=== PATIENT | female | born 1985 | race American Indian/Alaskan Native ===

== ENCOUNTER 2019-01-15 05:57 | Day surgery (SDC) | payer OTHER ==
--- NOTE | 2019-01-15 01:18 | History and Physical Report ---
History of Present Illness Date of examination: 01/14/19 Chief complaint: dysfunctional uterine bleeding History of present illness: Patient is a 34-year-old -Citizen Of [place] female 2 para 2001 who presents for surgical management of dysfunctional uterine bleeding after failed medical management. Past History Past Medical History: blood transfusion, other (Obesity) Past Surgical History: section, other (abdominoplasty, liposuction) Family/Genetic History: diabetes, hypertension Social history: no significant social history Medications and Allergies Allergies Allergy/AdvReac Type Severity Reaction Status Date / Time No Known Allergies Allergy Unverified 01/10/19 14:18 Home Medications Medication Instructions Recorded Confirmed Last Taken Type No Known Home Medications [No 01/10/19 01/10/19 Unknown History Reported Home Medications] Review of Systems All systems: negative - Physical Exam Breasts: Positive: deferred Cardiovascular: Regular rate Lungs: Positive: Clear to auscultation Abdomen: Positive: soft (obese) Extremities: Positive: normal Results All other labs normal. Assessment and Plan A: Dysfunctional uterine bleeding Obesity P: Proceed with hysteroscopy, Myosure endometrial sampling, NovaSure endometrial ablation and other indicated procedures
[~2019-01-15 05:57] MED LIST: LACTATED RINGERS 1,000 ML IV SCH
[2019-01-15] MEDS ORDERED: ANCEF/STERILE WATER 2 GM/20 ML 2 GM/20 ML SYRINGE IV NR (06:00)
[2019-01-15] MEDS ORDERED: ZOFRAN IV PRN (07:24)
[2019-01-15] MEDS ORDERED: SUBLIMAZE IV PRN (07:24)
[2019-01-15] MEDS ORDERED: DEMEROL IV PRN (07:24)
[2019-01-15] MEDS ORDERED: NARCAN 0.4 MG/1 ML IV PRN (07:24)
[2019-01-15] MEDS ORDERED: DILAUDID IV PRN (07:24)
[2019-01-15] MEDS ORDERED: ZOFRAN ONE (07:38)
[2019-01-15] MEDS ORDERED: XYLOCAINE MPF 2% ONE (07:39)
[2019-01-15] MEDS ORDERED: DIPRIVAN 10 MG/ML IV ONE (07:39)
[2019-01-15] MEDS ORDERED: SUBLIMAZE ONE (07:39)
[2019-01-15 07:42] LABS: Hematocrit 26.1 % (30.3-42.9); Mean Corpuscular HGB Conc 31 % (30-34); Platelet Count 326 K/mm3 (140-440); Red Blood Count 3.85 M/mm3 (3.65-5.03); Red Cell Distribution Width 18.2 % (13.2-15.2)
[2019-01-15 07:43] LABS: Mean Corpuscular Volume 68 fl (79-97)
[2019-01-15] MEDS ORDERED: VERSED IV NR (08:00)
--- NOTE | 2019-01-15 08:21 | Anesthesia Consultation ---
Anesthesia Consult and Med Hx Date of service: 01/15/19 - Airway Anesthetic Teeth Evaluation: Good ROM Head & Neck: Adequate Mental/Hyoid Distance: Adequate Mallampati Class: Class I Intubation Access Assessment: Probably Good - Pulmonary Exam CTA: Yes - Cardiac Exam Cardiac Exam: RRR - Pre-Operative Health Status ASA Pre-Surgery Classification: ASA2 Proposed Anesthetic Plan: General - Pulmonary Hx Smoking: Yes (Former; quit 1.5 years ago ) Hx Respiratory Symptoms: No SOB: No - Cardiovascular System Hx Hypertension: No Hx Heart Attack/AMI: No Hx Cardia Arrhythmia: No - Central Nervous System Hx Neuromuscular Disorder: No Hx Psychiatric Problems: No - Gastrointestinal Hx Gastroesophageal Reflux Disease: No - Endocrine Hx Renal Disease: No Hx Liver Disease: No Hx Insulin Dependent Diabetes: No Hx Non-Insulin Dependent Diabetes: No - Hematic Hx Anemia: Yes - Other Systems Hx Alcohol Use: Yes (Occas) Hx Cancer: No Hx Obesity: Yes (BMI 37.4) - Additional Comments Anesthesia Medical History Comments: No GAC, No FHAC
--- NOTE | 2019-01-15 08:22 | Anesthesia Day of Surgery ---
Anesthesia Day of Surgery - Day of Surgery Patient Examined: Yes Patient H&P Reviewed: Yes Patient is NPO: Yes ([id number]) Beta Blockers: No Cardiac Clearance: No Pulmonary Clearance: No
[2019-01-15] MEDS ORDERED: NACL 0.9% IR ONE (08:35)
[2019-01-15] MEDS ORDERED: SILVER NITRATE TP ONE ×2 (08:35)
[2019-01-15] MEDS ORDERED: DECADRON ONE (08:38)
[2019-01-15] MEDS ORDERED: TORADOL ONE (08:50)
--- NOTE | 2019-01-15 09:08 | Operative Report ---
Operative Report Operative Report: Date of procedure: January 15, 2019 Preoperative diagnosis: 1) Dysfunctional Uterine Bleeding 2) Obesity Postoperative diagnosis: Same Procedure: 1)Diagnostic Hysteroscopy 2)Myosure Endometrial Sampling 3)NovaSure Endometrial Ablation Surgeon: Sri Scott M.D. Findings: 1) Small anteverted mobile uterus that sounded to 9 cm 2) Proliferative endometrium on hysteroscopy Anesthesia: General with LMA Estimated blood loss: Minimal (25 mL ) IV fluid: 700 mL Specimens: Endometrial curettings to pathology Drains: None Complications: None Disposition: Stable to PACU Indications for procedure: The patient is a 34-year-old -[place] female 2 para 2001 who presents for surgical management of dysfunctional uterine bleeding after failed medical management. Operation in detail: After the risks, benefits, alternatives and complications of the procedure were explained to the patient, she gave informed consent for the procedure. She was subsequently taken to the operating room and placed in the dorsal supine position. SCDs noted to be in place and functioning. General anesthesia was then induced without difficulty. The patient was in placement dorsal lithotomy position and prepped and draped in normal sterile fashion. A timeout was performed. An exam under anesthesia was performed yielding a mobile anteverted uterus. The bladder was then catheterized and drained of urine. An open sided speculum was then placed into the vagina for adequate visualization of the cervix. The anterior lip of the cervix was then grasped with a tenaculum for traction. The cavity length was then noted to be 4.5 cm. At this time a hysteroscope was introduced through the cervix to visualize the endometrial cavity which revealed proliferative endometrium. The Myosure device was used to obtain endometrial curettings which were sent to pathology. Attention was then turned to the endometrial ablation. At this time, the cervix was noted to be sufficiently dilated to accommodate the Novasure device. Next the disposable NovaSure device was connected to the RF controller. The NovaSure disposable device was deployed to the locked position and noted to fully extend. The device was then placed in the unlocked position. The disposable device was then inserted into the uterine cavity with traction o n the tenaculum. The device was then seated per protocol. After moving the device back 0.5 cm, the device was moved superiorly and inferiorly and rotated clockwise and counterclockwise to 45. The cavity width at this time was noted to be 4.7 cm. The cervical collar was then advanced to the cervix. The cavity assessment was then initiated and passed. The ablation procedure was then initiated with a 2 minute duration. The cervical collar was moved away from the cervix, the device was moved to the unlocked position, and the disposable NovaSure device was removed from the uterine cavity. At this time, the single- tooth tenaculum was removed from the cervix. Silver nitrate and pressure were placed on the puncture sites to achieve hemostasis. Hemostasis was noted. All instruments were removed from the vagina atraumatically and the procedure was ended. The patient was placed into the dorsal supine position and extubated without difficulty. She was subsequently taken to the PACU in stable condition. She tolerated the procedure well. All counts were correct 2.
--- NOTE | 2019-01-15 09:12 | Short Stay Summary ---
Short Stay Documentation Date of service: 01/15/19 - History H&P: dictated Social history: no significant social history - Allergies and Medications Current Medications: Allergies No Known Allergies Allergy (Verified 01/15/19 01:19) Home Medications Medication Instructions Recorded Confirmed Last Taken Type No Known Home Medications [No 01/10/19 01/10/19 Unknown History Reported Home Medications] Active Medications Fentanyl (Sublimaze) 50 mcg IV Q5MIN PRN PRN Reason: Pain , Severe (7-10) Stop: 01/15/19 23:59 Hydromorphone HCl (Dilaudid) 0.5 mg IV Q10MIN PRN PRN Reason: Pain , Severe (7-10) Stop: 01/15/19 23:59 Cefazolin Sodium (Ancef/Sterile Water 2 Gm/20 Ml) 2 gm in 20 mls @ 80 mls/hr IV PREOP NR; Protocol Stop: 01/15/19 23:59 Lactated Ringer's (Lactated Ringers) 1,000 mls @ 75 mls/hr IV DIRECT DEE Meperidine HCl (Demerol) 25 mg IV ONCE PRN PRN Reason: Shivering Stop: 01/15/19 23:59 Midazolam HCl (Versed) 2 mg IV PREOP NR Stop: 01/15/19 23:59 Naloxone HCl (Narcan 0.4 Mg/1 Ml) 0.1 mg IV Q2MIN PRN PRN Reason: Res Rate </= 8 or 02 SAT < 92% Stop: 01/15/19 23:59 Ondansetron HCl (Zofran) 4 mg IV ONCE PRN PRN Reason: Nausea And Vomiting Stop: 01/15/19 23:59 - Physical exam Breasts: deferred - Brief post op/procedure progress note Date of procedure: 01/15/19 Pre-op diagnosis: Dysfunctional Uterine Bleeding Post-op diagnosis: same Procedure: 1) Hysteroscopy 2) Myosure endometrial sampling 3) Novasure endometrial ablation Anesthesia: GETA Findings: 1) Uterus sounded to 9 cm 2) Proliferative endometrium Surgeon: EILEEN SCOTT Estimated blood loss: minimal (25 mL) Pathology: list (endometrial curettingd) Specimen disposition: to lab Condition: stable - Hospital course Hospital course: Patient underwent hysteroscopy, Myosure endometrial sampling and NovaSure endometrial ablation which she tolerated well. She was observed in the PACU until she met discharge criteria. She'll follow-up in the office in [address] Scott. - Disposition Condition at discharge: Stable Disposition: DC-[id number] TO HOME OR SELFCARE - Discharge Diagnoses (1) Obesity Status: Acute Qualifiers: Obesity type: unspecified obesity type Serious obesity comorbidity presence: unspecified whether serious comorbidity present Body mass index: BMI 37.0-37.9 (2) DUB (dysfunctional uterine bleeding) Status: Acute Short Stay Discharge Plan Activity: other (Nothing per vagina x 4 wks ) Weight Bearing Status: Full Weight Bearing Diet: regular Follow up with: PRIMARY CAREMD [Primary Care Provider] - 7 Days EILEEN SCOTT MD [Staff Physician] - 01/29/19 (Please call to schedule postop appt ) Prescriptions: Ibuprofen [Motrin] 800 mg PO Q8HR PRN #30 tablet PRN Reason: Pain, Moderate (4-6) oxyCODONE /ACETAMINOPHEN [Percocet 5/325] 1 tab PO Q6HR PRN #30 tablet PRN Reason: Pain
[2019-01-15] MEDS ORDERED: PERCOCET 5/325 PO PRN (10:05)
--- NOTE | 2019-01-15 11:08 | Post Anesthesia Evaluation ---
- Post Anesthesia Evaluation Patient Participated: Yes Airway Patent: Yes Stable Respiratory Function: Yes Nausea/Vomiting: No Temp > 96.8F: Yes Pain Manageable: Yes Adequeate Hydration: Yes Anesthesia Complications: No
[2019-01-15 16:39] VITALS: BP 140/77
== END 2019-01-15 10:35 | disposition home or self-care (01) ==
LOC: OR 05:57
PROVIDERS: ATTEND Obstetrics & Gynecology
DX: N84.0 Polyp of corpus uteri (principal); N93.8 Other specified abnormal uterine and vaginal bleeding; E66.9 Obesity, unspecified; K21.9 Gastro-esophageal reflux disease without esophagitis; Z98.891 History of uterine scar from previous surgery; Z72.89 Other problems related to lifestyle; Z98.890 Other specified postprocedural states; Z87.891 Personal history of nicotine dependence; Z79.899 Other long term (current) drug therapy; Z68.37 Body mass index [BMI] 37.0-37.9, adult; Z86.2 Personal history of diseases of the blood and blood-forming organs and certain disorders involving the immune mechanism
CPT/HCPCS: 36415; 58563; 81025; 82803; 85027; 88305; A4217; C1782; J0690; J1100; J1885; J2250; J2405; J2704; J3010; J7120